=== PATIENT | male | born 1960 | race Caucasian/White ===

== ENCOUNTER 2020-06-09 13:29 | Emergency (ER) | payer SELFPAY ==
--- NOTE | ~2020-06-09 | XR_ITS ---
EXAMINATION: XR hand LT min 3V EXAM DATE: 06/09/2020 14:02 INDICATION: hand vs chainsaw . TECHNIQUE: Left hand frontal, lateral and oblique projections obtained and reviewed. There is no audi or study for comparison. FINDINGS: Left metacarpal bones are unremarkable. There is a laceration at the tip of the 4th finge r. 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 No ac carlos manuel osseous abnormality identified. 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 IMPRESSION: 1. Left 4th finger tip laceration. 2. 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 Reviewed, dictated and finalized at location A. CAR WELDER
[2020-06-09 13:42] VITALS: BP 135/86; PULSE 97; RESP 14; TEMP 36.7; O2SAT 99
--- NOTE | 2020-06-09 14:33 | ED.GENADULT ---
HPI - General Adult General Chief complaint: Wound/Laceration <Jaclyn Arana PA-C - Last Filed: 06/09/20 14:43> Stated complaint: left ring finger laceration <Jaclyn Arana PA-C - Last Filed: 06/09/20 14:43> Time Seen by Provider: 06/09/20 13:41 <Jaclyn Arana PA-C - Last Filed: 06/09/20 14:43> Source: patient <PANKAJ Yao Last Filed: 06/09/20 14:43> Mode of arrival: ambulatory <Jaclyn Arana PA-C - Last Filed: 06/09/20 14:43> Limitations: no limitations <PANKAJ Yao Last Filed: 06/09/20 14:43> History of Present Illness HPI narrative: Patient presents with chief complaint of laceration to his left fourth digit that he sustained while using a chainsaw that kicked back on him lacerating the digit. Patient states that the bleeding is well controlled and minimal at this time. Patient states that he has had his tetanus within the last 5 years. He reports he still has sensation full range of motion to the digit he denies any other areas of concerns or injuries. <Jaclyn Arana PA-C - Last Filed: 06/09/20 14:43> Related Data Allergies/adverse reactions: Allergies Allergy/AdvReac Type Severity Reaction Status Date / Time No Known Allergies Allergy Verified 06/09/20 13:46 <Jaclyn Arana PA-C - Last Filed: 06/09/20 14:43> Review of Systems Review of Systems: Narrative: CONSTITUTIONAL: Denies fever, chills, or sweats. EYES: Denies visual changes, redness, or discharge. ENT: Denies rhinorrhea, congestion, sore throat, or otalgia. CARDIOVASCULAR: Denies chest pain, palpitations, or edema. RESPIRATORY: Denies cough or dyspnea. GASTROINTESTINAL: Denies abdominal pain, nausea, vomiting, or diarrhea. GENITOURINARY: Denies dysuria or hematuria. SKIN: Reports laceration denies rash or itching. MUSCULOSKELETAL: Denies back pain, joint pain, or myalgia. NEUROLOGIC: Denies headache, numbness, dizziness, or weakness. PSYCHIATRIC: Denies anxiety or depression. <Jaclyn Arana PA-C - Last Filed: 06/09/20 14:43> Exam Narrative: Exam Narrative: GENERAL: Well-appearing, well-nourished, and in no acute distress. HEAD: Normocephalic, atraumatic. EYES: PERRLA and EOMI. NECK: Supple. No adenopathy or masses. No carotid bruits or JVD CHEST: Clear to auscultation. No respiratory distress. No wheezes rales or rhonchi HEART: Regular rate and rhythm. EXTREMITIES: Normal range of motion. No edema. SKIN: Laceration to distal aspect of left 4th digit. tip of nail cut off but majority of nail intact and matrix uninjured. skin avulsed back at tip. No active bleeding. sensation and ROM intact to digit. Warm, dry, no rash. NEURO: No focal deficits. Alert and oriented x3. PSYCH: Normal mood and affect. <Jaclyn Arana PA-C - Last Filed: 06/09/20 14:43> Course Vital Signs Vital signs: Vital Signs Temperature 98.0 F 06/09/20 13:42 Pulse Rate 97 06/09/20 13:42 Respiratory Rate 14 06/09/20 13:42 Blood Pressure 135/86 06/09/20 13:42 Pulse Oximetry 99 06/09/20 13:42 Temperature 98.0 F 06/09/20 13:42 Pulse Rate 97 06/09/20 13:42 Respiratory Rate 14 06/09/20 13:42 Blood Pressure 135/86 06/09/20 13:42 Pulse Oximetry 99 06/09/20 13:42 <Jaclyn Arana PA-C - Last Filed: 06/09/20 14:43> Vital Signs Temperature 98.0 F 06/09/20 13:42 Pulse Rate 97 06/09/20 13:42 Respiratory Rate 14 06/09/20 13:42 Blood Pressure 135/86 06/09/20 13:42 Pulse Oximetry 99 06/09/20 13:42 Temperature 98.0 F 06/09/20 13:42 Pulse Rate 97 06/09/20 13:42 Respiratory Rate 14 06/09/20 13:42 Blood Pressure 135/86 06/09/20 13:42 Pulse Oximetry 99 06/09/20 13:42 <Shira Orantes MD - Last Filed: 06/09/20 18:30> Medical Decision Making MDM Narrative Medical decision making narrative: Skin is with an avulsion at the tip. Nailbed is intact and not bleeding. The avulsed skin does not take enough to sustain sutur
== END 2020-06-09 14:59 | disposition home or self-care (01) ==
PROVIDERS: Emergency Provider General Practice; Referring Provider Emergency Medicine
DX: S61.215A Laceration without foreign body of left ring finger without damage to nail, initial encounter (principal); W29.3XXA Contact with powered garden and outdoor hand tools and machinery, initial encounter
CPT/HCPCS: 73130; 99283

== ENCOUNTER 2022-09-26 12:12 | Emergency (ER) | payer OTHER, SELFPAY ==
--- NOTE | ~2022-09-26 | XR_ITS ---
EXAMINATION: XR ankle LT min 3V DATE: 09/26/2022 17:18 INDICATION: Anterolateral left ankle pain TECHNIQUE: Anteroposterior, oblique, mortise, and lateral views of the left ankle were obtained. COMPARISON: Left foot radiographs dated 09/27/2022 FINDINGS: Alignment is normal. No fracture. Joint spaces are well maintained. No ankle joint effusion. The so ft tissues are unremarkable. IMPRESSION: 1. Negative left ankle radiographs. Reviewed, dictated and finalized at location A. ERING WORKER
--- NOTE | ~2022-09-26 | XR_ITS ---
XR foot LT min 3V DATE: 09/26/2022 13:42 INDICATION: Foot pain for 5 months. No known injury. TECHNIQUE: 4 views COMPARISON: None FINDINGS: There is mild osteoarthritis at the first metatarsophalangeal joint. No fracture, dislocati on, periosteal reaction or bone destruction or erosive change. Mild hallux valgus and bunion deformit y. IMPRESSION: Mild hallux valgus and bunion deformity Mild osteoarthritis at first metatarsophalangeal joint Reviewed, dictated and finalized at location L. ALIST
[2022-09-26 13:06] VITALS: BP 132/74; PULSE 92; RESP 18; TEMP 36.5; O2SAT 99
[2022-09-26 16:32] VITALS: BP 143/89; PULSE 90; RESP 16; TEMP 36.5; O2SAT 100
--- NOTE | 2022-09-26 16:36 | ED.GENADULT ---
HPI - General Adult General Chief complaint: Extremity Problem,Nontraumatic Stated complaint: left foot pain x 4 months Time Seen by Provider: 09/26/22 16:34 Source: patient Mode of arrival: ambulatory Limitations: no limitations History of Present Illness HPI narrative: This is a 61-year-old male who presents to the ED with chief complaint of left foot pain times several months. He had an injury earlier this week in which she states he was helping someone move and something fell off the shelf directly onto the top of his left foot. Pain worsens with walking and at work. Patient reports left ankle pain that has been ongoing for the last 4 months. Reports swelling. Denies numbness, weakness, fevers, chills. No skin changes. Denies any further pain site or injury. Related Data Allergies Allergy/AdvReac Type Severity Reaction Status Date / Time No Known Allergies Allergy Verified 09/26/22 16:37 Review of Systems Review of Systems: CONSTITUTIONAL: Denies fever, chills, or sweats.. SKIN: Denies rash or itching. Denies overlying skin changes. Denies wounds. MUSCULOSKELETAL: Endorses left foot and left ankle pain. Denies back pain, other joint pain, or myalgia. NEUROLOGIC: Denies headache, numbness, dizziness, or weakness. PSYCHIATRIC: Denies anxiety or depression. Exam Narrative: GENERAL: Well-appearing, well-nourished, and in no acute distress. HEAD: Normocephalic, atraumatic. EXTREMITIES: Left foot exam: Nontender throughout the left foot. No swelling appreciated. Normal DP and PT pulses. Neurovascular intact distally. Left ankle exam: No swelling appreciated on exam. No tenderness appreciated either. Normal active range of motion and passive range of motion of the left ankle. MSK exam is otherwise benign. No calf swelling or tenderness. Homans' sign negative. normal range of motion. No edema. SKIN: Warm, dry, no rash. No overlying skin changes throughout the foot NEURO: Alert and oriented x3. No focal deficits. PSYCH: Normal mood and affect. Course Vital Signs Vital signs: Vital Signs Temperature 97.7 F 09/26/22 13:06 Pulse Rate 92 09/26/22 13:06 Respiratory Rate 18 09/26/22 13:06 Blood Pressure 132/74 09/26/22 13:06 Pulse Oximetry 99 09/26/22 13:06 Oxygen Delivery Room Air 09/26/22 13:06 Temperature 97.7 F 09/26/22 16:32 Pulse Rate 90 09/26/22 16:32 Respiratory Rate 16 09/26/22 16:32 Blood Pressure 143/89 H 09/26/22 16:32 Pulse Oximetry 100 09/26/22 16:32 Oxygen Delivery Room Air 09/26/22 16:32 Medical Decision Making MDM Narrative Medical decision making narrative: This is a 61-year-old male presents to the ED with chief complaint of left foot and left ankle pain. Ankle pain is been going on for 4 months. Foot pain started this week after he dropped something on it while helping a friend move. Vitals stable. X-rays do not show any acute osseous findings in the foot or ankle. No concern for DVT. We will give him orthopedic referral. Supportive measures discussed. He is stable for discharge at this point. Patient is understanding and agreeable with plan for discharge. Vital Signs Vital Signs: Vital Signs Temperature 97.7 F 09/26/22 13:06 Pulse Rate 92 09/26/22 13:06 Respiratory Rate 18 09/26/22 13:06 Blood Pressure 132/74 09/26/22 13:06 Pulse Oximetry 99 09/26/22 13:06 Oxygen Delivery Room Air 09/26/22 13:06 Temperature 97.7 F 09/26/22 16:32 Pulse Rate 90 09/26/22 16:32 Respiratory Rate 16 09/26/22 16:32 Blood Pressure 143/89 H 09/26/22 16:32 Pulse Oximetry 100 09/26/22 16:32 Oxygen Delivery Room Air 09/26/22 16:32 Discharge Plan Discharge Clinical Impression: Chronic pain of left ankle, Arthralgia of left foot Patient Disposition: Home, Self-Care Condition: Stable Instructions: Antibiotic Form Additional Instructions: Please take both Tylenol and ibuprofen for pain and swelling at
[2022-09-26] MEDS: IBUPROFEN 400 MG TABLET 800 MG PO (17:52)
[2022-09-26 17:59] VITALS: BP 142/85; PULSE 87; RESP 16; TEMP 36.7; O2SAT 99
== END 2022-09-26 17:59 | disposition home or self-care (01) ==
PROVIDERS: Emergency Provider Physician Assistant
DX: M25.572 Pain in left ankle and joints of left foot (principal); G89.29 Other chronic pain; M20.12 Hallux valgus (acquired), left foot; M19.072 Primary osteoarthritis, left ankle and foot
CPT/HCPCS: 73610; 73630; 99284; A9270

== ENCOUNTER 2024-02-15 17:25 | Emergency (ER) | payer OTHER, SELFPAY ==
[2024-02-15 17:36] VITALS: BP 149/84; PULSE 113; RESP 16; TEMP 37.6; O2SAT 98
--- NOTE | 2024-02-15 17:54 | ED.URI ---
HPI - URI/Sore Throat General Chief Complaint: Upper Respiratory Infection Stated Complaint: stuffy nose,cough,bodyaches Time Seen by Provider: 02/15/24 17:40 Source: patient and RN notes reviewed Mode of arrival: ambulatory Limitations: no limitations History of Present Illness HPI Narrative: Patient presents today complaining of cough, headache, sore throat, body aches, nasal congestion since yesterday morning. Denies fever, shortness of breath, chest pain. He has tried no [id number] treatment prior to arrival. He is a nonsmoker. Related Data Allergies Allergy/AdvReac Type Severity Reaction Status Date / Time No Known Allergies Allergy Verified 02/15/24 17:28 Review of Systems Review of Systems: CONSTITUTIONAL: Denies fever, chills, or sweats.+ body aches EYES: Denies visual changes, redness, or discharge. ENT: Denies rhinorrhea, or otalgia.+ congestion, sore throat CARDIOVASCULAR: Denies chest pain, palpitations, or edema. RESPIRATORY: Denies dyspnea.+ cough GASTROINTESTINAL: Denies abdominal pain, nausea, vomiting, or diarrhea. GENITOURINARY: Denies dysuria or hematuria. SKIN: Denies rash, itching, or wounds. MUSCULOSKELETAL: Denies back pain, joint pain, or myalgia. NEUROLOGIC: Denies numbness, tingling, or weakness.+ headache PSYCH: Denies depression or anxiety. PMFSH Comments At time of signature, I have reviewed and agree with nursing past medical, surgical, social and family history unless otherwise noted. Please see nursing chart for further information. There is no relevant family history pertinent to the presenting complaint Exam Narrative: GENERAL: Well-appearing, well-nourished, and in no acute distress. HEAD: Normocephalic, atraumatic. EYES: EOMI. No redness or drainage. Conjunctivae normal. ENT: Mucous membranes pink and moist. Nares mildly congested. No rhinorrhea. TMs normal bilaterally. Throat normal. Uvula midline. NECK: Normal AROM. Supple. No lymphadenopathy. CHEST: No respiratory distress. Clear to auscultation. HEART: Regular rate and rhythm. No murmur appreciated. EXTREMITIES: Normal range of motion. No edema. SKIN: Warm, dry, no rash. Capillary refill normal. Normal skin turgor. NEURO: No focal deficits. Alert and oriented x3. Gait steady. PSYCH: Normal affect. No signs of depression or anxiety. Course Course Level of Care: Express Care Visit Vital Signs Vital signs: Vital Signs Temperature 99.6 F 02/15/24 17:36 Pulse Rate 113 H 02/15/24 17:36 Respiratory Rate 16 02/15/24 17:36 Blood Pressure 149/84 H 02/15/24 17:36 Pulse Oximetry 98 02/15/24 17:36 Oxygen Delivery Room Air 02/15/24 17:36 Temperature 99.6 F 02/15/24 17:36 Pulse Rate 113 H 02/15/24 17:36 Respiratory Rate 16 02/15/24 17:36 Blood Pressure 149/84 H 02/15/24 17:36 Pulse Oximetry 98 02/15/24 17:36 Oxygen Delivery Room Air 02/15/24 17:36 Reviewed MDM - URI/Sore Throat MDM Narrative Medical decision making narrative: Testing negative. Symptoms likely viral in etiology. Discussed [id number] medication use and duration of illness. No prescription medications indicated at this time. Anticipatory guidance given. Differential Diagnosis Differential diagnosis: Likely upper respiratory infection, viral infection, influenza, pharyngitis and other (Strep throat, COVID) Lab Data Attestation: I reviewed the patient's lab results. Labs: Lab Results 02/15/24 Range/Units 17:45 POC Inf A,B Int Ctl Amrita Yes POC Influenza A Ag Negative POC Influenza B Ag Negative POC SARS CoV-2 Ag Negative (Negative) POC Grp A Strep Screen Presumptive negative Gp A Beta Strep Culture Yes Grp A Strep Int Pos QC Yes Critical Care Time Critical Care Time Critical Care Time: No Discharge Plan Discharge Clinical Impression: Upper respiratory infection Qualifiers: URI type: unspecified URI Qualified Code(s): J06.9 - Acute upper
[2024-02-15 17:55] LABS: EDSTREPNEGPOS1 Presumptive Negative
[2024-02-15 17:56] LABS: EDINFLUASCREEN Negative; EDINFLUBSCREEN Negative
== END 2024-02-15 18:09 | disposition home or self-care (01) ==
PROVIDERS: Emergency Provider Nurse Practitioner
DX: J06.9 Acute upper respiratory infection, unspecified (principal); Z20.822 Contact with and (suspected) exposure to COVID-19
CPT/HCPCS: 87081; 87426; 87804; 87880; 99213; G0463